=== PATIENT | male | born 1950 | race Caucasian/White ===

== ENCOUNTER 2018-02-01 11:33 | Outpatient (CLI) | payer BC, MEDICARE ==
--- NOTE | 2018-02-01 17:04 | RAD ---
ABDOMEN TWO VIEWS: 02/01/18 Supine and erect films show no free air beneath the diaphragm. The gas pattern is normal with no dila lucio loops to suggest obstruction. There is a large amount of fecal material in the colon, however. Pe lvic calcifications are probably phleboliths. The bones and soft tissues showed no acute change. IMPRESSION: Mild constipation. POS: HOME
== END 2018-02-01 11:34 | disposition home or self-care (01) ==
LOC: BURRAD 11:33
PROVIDERS: ATTEND Family Medicine
DX: K59.00 Constipation, unspecified (principal)
CPT/HCPCS: 74019

== ENCOUNTER 2019-09-26 15:47 | Emergency (ER) | payer BC, MEDICARE ==
[2019-09-26] MEDS ORDERED: Aspirin Chewable 81 MG TAB ONE ×2 (16:02→16:03)
[2019-09-26] MEDS ORDERED: Ondansetron PF 4 MG/2 ML Vial ONE (16:06)
[2019-09-26] MEDS ORDERED: Morphine 4 MG/ML VIAL ONE (16:11)
[2019-09-26 16:16] LABS: Prothrombin Time 13.1 SEC (12.0-14.7)
[2019-09-26] MEDS ORDERED: Nitroglycerin 0.4 MG TAB 1 EACH ONE ×3 (16:16→16:56)
[2019-09-26 16:20] LABS: Hemoglobin 15.8 g/dL (14.0-18.0); Mean Corpuscular HGB CONC 31.4 g/dL (32.0-36.0); Mean Corpuscular Volume 92.2 fL (78.0-98.0); Mean Platelet Volume 8.6 fL (7.4-10.4); Platelet Count 187 thou/uL (130-400); RBC Distribution Width 13.3 % (11.5-14.5); Red Blood Cell (RBC) Count 5.44 mill/uL (4.70-6.10); White Blood Cell (WBC) Count 6.6 thou/uL (4.8-10.8)
[2019-09-26 16:33] LABS: ALT (SGPT) 27 U/L (8-55); AST (SGOT) 18 U/L (5-34); Albumin 4.2 g/dL (3.4-4.8); Alkaline Phosphatase 98 U/L (40-110); Anion Gap 13 mmol/L (10-20); BUN (Urea Nitrogen) 12 mg/dL (8.4-25.7); Bilirubin, Total 1.5 mg/dL (0.2-1.2); CK (CPK) 216 U/L (30-200); Calc. Creatinine Clearance 0 mL/min (70-130); Calcium 9.1 mg/dL (7.8-10.44); Carbon Dioxide 26 mmol/L (23-31); Chloride 105 mmol/L (98-107); Estimated GFR-MDRD 58; Globulin 2.4 g/dL (2.4-3.5); Glucose 125 mg/dL (80-115); Magnesium 2.1 mg/dL (1.6-2.6); Protein, Total 6.6 g/dL (5.8-8.1); Sodium 140 mmol/L (136-145)
[2019-09-26 16:37] LABS: MDiff Complete? YES
[2019-09-26 16:38] LABS: Band 3 % (5-11); Eosinophils 3 % (0-10); Lymphocytes 20 % (21-51); Monocytes 12 % (0-10); Neutrophil 61 % (42-75)
[2019-09-26 16:43] LABS: CKMB 3.5 ng/mL (0-6.6)
--- NOTE | 2019-09-26 17:26 | RAD ---
PORTABLE CHEST: 09/26/19 An AP portable film at 1559 is compared with a prior study dated 08/30/17. Cardiomegaly is again seen. The heart size may have increased slightly in the interval. There is no e tonie, vascular congestion, or pleural effusion. No focal pulmonary infiltrate was seen. IMPRESSION: Cardiomegaly. POS: HOME
== END 2019-09-26 16:55 | disposition short-term general hospital (02) ==
LOC: BURERS 15:47
DX: I21.19 ST elevation (STEMI) myocardial infarction involving other coronary artery of inferior wall (principal); I25.2 Old myocardial infarction; E78.5 Hyperlipidemia, unspecified; E78.00 Pure hypercholesterolemia, unspecified; Z87.891 Personal history of nicotine dependence
CPT/HCPCS: 71045; 80053; 82550; 82553; 83735; 83880; 84484; 85025; 85610; 85730; 93005; 96374; 96375; J2270; J2405

== ENCOUNTER 2021-07-28 10:17 | Outpatient (CLI) | payer MEDICARE, MEDICAID | END 2021-07-28 10:18 | disposition home or self-care (01) | LOC: BURRAD 10:17 | PROVIDERS: ATTEND Family Medicine | DX: M25.561 Pain in right knee (principal) ==

== ENCOUNTER 2022-04-07 17:28 | Emergency (ER) | payer OTHER, MEDICAID ==
[2022-04-07] MEDS ORDERED: Cephalexin 250 MG CAP ONE (17:56)
[2022-04-07] MEDS ORDERED: HYDROcodone/Acetaminophen 10/325 mg Tablet ONE (17:56)
[2022-04-07] MEDS ORDERED: Ondansetron ODT 4 MG TAB ONE (17:56)
== END 2022-04-07 20:30 | disposition short-term general hospital (02) ==
LOC: BURERS 17:28
DX: S62.522B Displaced fracture of distal phalanx of left thumb, initial encounter for open fracture (principal); E78.5 Hyperlipidemia, unspecified; E78.00 Pure hypercholesterolemia, unspecified; I25.2 Old myocardial infarction; Z87.891 Personal history of nicotine dependence; W27.0XXA Contact with workbench tool, initial encounter
CPT/HCPCS: 96372; Q0162